=== PATIENT | male | born 1950 | race Two or more races ===

== ENCOUNTER → 2025-07-06 | Outpatient (CLI) | payer MEDICARE, MEDICAID, SELFPAY ==
--- NOTE | 2025-07-06 | XR_ITS ---
EXAMINATION: Sacrum and coccyx 3 views TECHNIQUE: AP, inclined AP, lateral sacrum coccyx 3 views Date and time: July 06, 2025, 1250 hours INDICATIONS: Patient fell 4 days ago with injury to the sacrum, sacral pain. FINDINGS: Prominent osteopenia Moderate narrowing hip joints No hip fractures Lateral film demonstrates no acute sacral fracture IMPRESSION: No acute sacral fracture
--- NOTE | 2025-07-06 | XR_ITS ---
Examination: Lumbar spine, 5 views Technique: Lumbar spine AP, lateral, coned lateral lower lumbar spine, bilateral obliques 5 views Exam date and time: July 06, 2025, 1250 hours INDICATION: Patient fell 4 days ago with injury to the back, back pain COMPARISON: 04/12/2023 FINDINGS: Prominent lumbar spondylosis Advanced diffuse facet arthropathy No acute lumbar fracture Diffuse lumbar degenerative disc disease, advanced L4-L5 IMPRESSION: No acute lumbar fracture
== END | disposition home or self-care (01) ==
LOC: CDIM 11:21
PROVIDERS: PCP Physician Assistant; Referring Provider Physician Assistant; Visit Provider Physician Assistant
DX: S39.92XA Unspecified injury of lower back, initial encounter (principal); S29.9XXA Unspecified injury of thorax, initial encounter; W19.XXXA Unspecified fall, initial encounter
CPT/HCPCS: 72110; 72220